=== PATIENT | male | born 1950 | race Caucasian/White ===

== ENCOUNTER 2016-10-12 07:07 | Inpatient (IN) | payer MEDICARE ==
[~2016-10-12] VITALS: Ht 172.7 cm; Wt 85.9 kg
[2016-10-12] VITALS (7 sets, daily range): BP systolic 141–163; BP diastolic 71–92; PULSE 50–73; RESP 18–19; O2SAT 96–99
[~2016-10-12 07:07] MED LIST: CLOP75TA3 PO; METO25TA6 PO; MULT-1018 PO; PRAV10TA2 PO
--- NOTE | 2016-10-12 07:18 | ED.REPORT ---
HPI-Chest Pain 40 and Over Date of Service Oct 12, 2016 ED Provider: Marcelino Mccoy MD The patient is a 66 year old male with history of coronary artery disease s/p stenting, hypertension, high cholesterol, and atrial fibrillation on Plavix, who presents to the emergency department complaining of substernal chest pressure that began 3 days ago. The pain radiates up into his neck. His pain has been intermittent since onset. His symptoms do not seem to be brought on by anything. His symptoms are not worse with exertion. His pain is currently improved. The patient took a full strength ASA prior to arrival. His pain is similar to when he previously had stents placed. He denies fever, chills, cough , abdominal pain or lower extremity swelling. He denies history of previous blood clots. Nursing Notes Stated Complaint: CHEST PAIN Chief Complaint: Chest Pain Nursing Notes Reviewed: Yes Allergies: Coded Allergies: atorvastatin (Verified Allergy, Severe, Itchy, tired, achy, blood in urine , 10/12/16) "itchy, achy, blood in urine" simvastatin (Verified Allergy, Severe, Tired, achy, and itchy, 10/12/16) "achy all over" Scheduled Aspirin (Aspirin) 81 Mg Tablet 81 MG PO QPM Flaxseed Oil ([place]-3 Flaxseed Oil) 1,000 Mg Capsule 1,000 MG PO QAM Lisinopril (Lisinopril) 10 Mg Tablet 10 MG PO QAM Metoprolol Tartrate (Metoprolol Tartrate) 25 Mg Tablet 25 MG PO BID Multivitamin (Multi Vitamin Daily) 1 Each Tablet 1 TABLET PO QAM Pravastatin (Pravastatin) 20 Mg Tablet 20 MG PO HS General Time Seen by MD: 07:17 Chief Complaint Chest pressure Hx Obtained From: Patient Arrived By: Walk-in Sudden in Onset?: Yes Onset Occurred: 3 days ago Symptom Duration: Intermittent Location: : Substernal Quality: Pressure Radiation: : Neck Migration/Movement: Reports: None Severity: Current: No pain currently Severity: Maximum: Severe Recent Healthcare: No recent doctor visit, No recent hospitalization Similar Sx Previous: Yes Past Medical History Past Medical History Atrial fibrillation STEMI - stent placed High cholesterol Hypertension CAD Basal cell cancer Headaches Past Surgical History Cardiac catheterization with stenting Root canal EXC BASAL CELL CA-NOSE Family History Noncontributory Smoking History Former Smoker Social History Alcohol Use: "Social" Drug Use: Denies drug use Other Social History: Local resident Ambulatory Status Independent Review of Systems Constitutional: Denies: Chills, Fever Respiratory: Denies: Non-productive cough Cardiovascular: Reports: Chest pain GI: Denies: Abdominal pain Musculoskeletal: Reports: Neck pain Complete sys rev & neg: except as marked. Physical Exam Initial Vital Signs Vital Signs (First) Date Time Temp Pulse Resp B/P Pulse Ox O2 Delivery O2 Flow Rate FiO2 10/12/16 07:10 36.3 73 18 163/92 99 Initial VS: Reviewed Head / Eyes: Atraumatic, Normocephalic, PERRL ENT: Mucous membranes moist, Conjunctiva normal, No scleral icterus Neck: Supple, Non-tender, Full range of motion Back: No CVA tenderness Lymphatic: No lymphadenopathy Extremities: Vascular intact, Neuro intact, No swelling, No tenderness Skin: Warm, Dry, No cyanosis Neurologic: Alert, Oriented, Nonfocal Psychiatric: Mood/affect normal, Behavior normal, Normal thought content General/Constitutional: Awake, Alert, No acute distress, Well appearing, Cooperative Respiratory / Chest: Atraumatic, Breath sounds NL, Breath sounds = bilat, No respiratory distress, No rales, No rhonchi, No wheezing, No stridor, No chest tenderness, No chest wall deformity Cardiovascular: Heart rate NL, Regular rhythm, Heart sounds NL, No gallop, No murmurs, No rubs, Peripheral circulation NL, Pulses = bilaterally, No gross BP differential Abdomen: Atraumatic, Soft, Non-tender, McBurney's non-tender, No guarding, No rebound, BS normoactive, No distention, No hernia, No palpable mass Lower Extremity / Pelvis / MS: Neurologic intact, Vascular intact No calf swelling or tenderness Interpretation & Diagnostics Lab Results Interpretation Result Diagram: 10/12/16 0749 10/12/16 0749 Test 10/12/16 07:49 White Blood Count 7.1th/mm3 (3.8-10.1) Red Blood Count 5.56mil/mm3 (4.40-5.80) Hemoglobin 15.4g/dL (13.8-17.2) Hematocrit 44.9% (41.0-50.0) Mean Corpuscular Volume 80.8fL (81-100) Mean Corpuscular Hemoglobin 27.7pg (27.0-35.0) Mean Corpuscular Hemoglobin Concent 34.3% (32.0-37.0) Red Cell Distribution Width 13.5% (12.3-15.4) Platelet Count 205bil/L (150-400) Neutrophils (%) (Auto) 68.0% (40-74) Lymphocytes (%) (Auto) 21.4% (14-46) Monocytes (%) (Auto) 7.4% (4-12) Eosinophils (%) (Auto) 2.7% (0-5) Basophils (%) (Auto) 0.4% (0-3) Prothrombin Time 10.7sec (8.1-12.5) Prothromb Time International Ratio 1.00ratio Sodium Level 139mEq/L (134-144) Potassium Level 3.9mEq/L (3.5-5.2) Chloride Level 102mEq/L (97-108) Carbon Dioxide Level 22mmol/L (18-29) Blood Urea Nitrogen 15mg/dL (8-27) Creatinine 0.86mg/dL (0.76-1.27) Estimat Glomerular Filtration Rate 94mL/min (>59) Glucose Level 223mg/dL (60-99) Calcium Level 9.0mg/dL (8.5-10.1) Magnesium Level 2.1mg/dL (1.6-2.6) Total Bilirubin 0.5mg/dL (0.0-1.2) Aspartate Amino Transf (AST/SGOT) 18U/L (0-50) Alanine Aminotransferase (ALT/SGPT) 15U/L (0-44) Alkaline Phosphatase 67U/L (25-160) Troponin T 0.038ug/L (0.0-0.011) Total Protein 6.7g/dL (6.4-8.4) Albumin 4.1g/dL (3.4-5.0) ECG Interpretation ECG Interpretation: Sinus rhythm with a rate of [address] segment changes Inferior Q waves present No acute T wave abnormalities When compared to prior EKG taken on 01/27/15 no acute changes Time: 07:30 Interpreted by: ED physician X-Ray Chest Interpretation Chest Xray Interpretation: IMPRESSION: Stable cardiomegaly. No acute pulmonary findings. Dictated by: Zulma Khan M.D. on 10/12/2016 at 8:19 Interpretation / Wet Read by: Interpret - Radiologist Re-Eval/Medical Decision Med Decision/Clinical Course Patient is a 66-year-old male with a history of known coronary artery disease with history of 2 cardiac stents who presents the emergency department with 3 days of unstable anginal symptoms occurring both at rest and with exertion. Upon arrival to the emergency department the patient is chest pain-free and in no apparent distress with stable vital signs. EKG demonstrates inferior Q waves with no acute ischemic changes and his EKG is unchanged from prior. Laboratory studies including CBC and CMP are unremarkable and initial troponin is positive at 0.038, normal coags. CXR: Obtained, reviewed and interpreted by myself shows no evidence of acute infiltrates, effusions or pneumothorax. Cardiac and mediastinal silhouette normal. No bony or soft tissue abnormalities. His history is concerning for unstable angina. He reports that his symptoms today are similar to what he was experiencing prior to undergoing stent placement. At this moment I see no indication that the patient is experiencing ST elevation RI and he is chest pain-free at this time. History not suggestive of PE and physical exam reveals no findings suggestive of DVT. This pain is not reproducible arguing against musculoskeletal etiologies. Given that patient is high risk for cardiac standpoint I feel that he warrants admission for further cardiac risk stratification, after discussing with cardiology I have started him on a heparin bolus and infusion in the setting of his concerning history and elevated troponin level. Patient was discussed with admitting hospitalist and transferred to telemetry malik in stable condition. Source of Hx: Old records Time of Eval: 08:00 Re-Evaluation/Progress Note: Discussed plan for admission with the patient. He understands and agrees with plan. All questions were addressed. Consultation #1: Referral / Consult Name: Yang Willoughby MD Consulted With: Cardiology Requested Call at: 09:06 Call Returned at: 09:07 Psych Sales Specialist: Will see patient, Agrees with eval, Agrees with plan Consultation #2: Consulted With: Hospitalist Psych Sales Specialist: Will see patient, Agrees with eval, Agrees with plan, Accepts admit Counseled Regarding: Diagnosis, Lab results, Need for admission Discharge & Departure Primary Impression: Chest pain Chest pain type: unspecified Qualified Code: R07.9 - Chest pain, unspecified Additional Impressions: History of heart artery stent History of hyperlipidemia History of hypertension Unstable angina Disposition: ADMITTED TO HOSPITAL Discharge Condition All VS Reviewed: Yes Condition: Stable Referrals: Gabe Mak DO (PCP) Crit Care Except Billable Proc Time Spent: 105-134 minutes Services Performed: Patient management by me, Time spent at bedside, Reviewing test results, Reviewing imaging, Discussing patient care, Documentation in record Scribe Attestation Portions of this note were transcribed by Breanna Mays. I, Dr. Mccoy personally performed the history, physical exam and medical decision-making; I reviewed and confirmed the accuracy of the information in the transcribed note. Signed by: Jordan Reed, 10/12/2016 at 0951. copies to: Gabe Mak Beck O MD Oct 12, 2016 07:18 Breanna Mays Oct 12, 2016 07:20
[2016-10-12 08:06] LABS: BASOPHILS % (AUTO) 0.4 % (0-3); EOSINOPHILS % (AUTO) 2.7 % (0-5); MONOCYTES % (AUTO) 7.4 % (4-12); Mean Corpuscular Hemoglobin 27.7 pg (27.0-35.0); Mean Corpuscular Volume 80.8 fL (81-100); Platelet Count 205 bil/L (150-400)
--- NOTE | 2016-10-12 08:20 | DRSVH ---
PROCEDURE: X-RAY CHEST ONE VIEW, PORTABLE ([id number]) INDICATIONS: CHEST PAIN TECHNIQUE: One view of the chest was acquired. COMPARISON: [facility], , CHEST 1VW (PORTABLE), 01/26/2015, 8:23. FINDINGS: Surgical changes and devices: None. Lungs and pleura: No pleural effusions or pneumothorax. Lungs are clear. Mediastinum: Mediastinal contours appear normal. Heart size is enlarged, as before. Bones and chest wall: No suspicious bony lesions. Overlying soft tissues appear unremarkable. IMPRESSION: Stable cardiomegaly. No acute pulmonary findings. Dictated by: Zulma Khan M.D. on 10/12/2016 at 8:19 Approved by: Zulma Khan M.D. on 10/12/2016 at 8:19
[2016-10-12 08:35] LABS: Magnesium 2.1 mg/dL (1.6-2.6)
[2016-10-12 08:50] LABS: TROPONIN T 0.038 ug/L (0.0-0.011)
[2016-10-12] MEDS ORDERED: Heparin 5,000 Unit/mL Inj IVPUSH PRN (09:20)
[2016-10-12] MEDS ORDERED: Heparin 5,000 Unit/mL Inj IVPUSH ONE (09:20)
[2016-10-12] MEDS ORDERED: FLAX100038 PO (09:59)
[2016-10-12] MEDS ORDERED: LISI10TA PO (09:59)
[2016-10-12] MEDS ORDERED: ASPI-973 PO (09:59)
[2016-10-12] MEDS ORDERED: PRAV20TA2 PO (09:59)
[2016-10-12] MEDS ORDERED: Senna-Docusate 8.6-50 mg Tablet PO PRN (10:10)
[2016-10-12] MEDS ORDERED: Alum-Mag Hydrox-Simeth 30 mL Suspension PO PRN (10:10)
[2016-10-12] MEDS ORDERED: Polyethylene Glycol (PEG) 17 Gm Powder PO PRN (10:10)
[2016-10-12] MEDS ORDERED: Ondansetron 2 mg/mL 2 mL Inj IVPUSH PRN (10:10)
[2016-10-12] MEDS: Heparin 25K Unit/500mL 0.45 NS 25,000 UNIT in IV Premix 1 EACH IV SCH (11:24)
[2016-10-12 11:40] LABS: TROPONIN T 0.057 ug/L (0.0-0.011)
[2016-10-12] MEDS: 0.9% Sodium Chloride 1,000 ML IV SCH (12:47)
--- NOTE | 2016-10-12 13:28 | NUR ---
Admit Pt arrived to floor at approx 1215. Independent in room. Heparin drip infusing per protocol. Started IVF's as ordered. Pt denies CP. Cardiology in room to assess and discuss plan. 2nd IV started in anticipation of heart cath. Pt understands to remain NPO until decision made about heart cath schedule.
--- NOTE | 2016-10-12 14:08 | CONS ---
[address] [address] CONSULTATION REPORT PATIENT: WINDY ELIZALDE : 1950 MR#: [id number] ADMIT: 10/12/2016 JOB ID: [id number] DATE OF SERVICE: 10/12/2016 CARDIOLOGY CONSULTATION: IDENTIFICATION: Dr. Mccoy has asked that I consult on this 66-year-old male with known coronary artery disease who presents with accelerating chest discomfort. HISTORY: The patient's cardiac history dates back to 2007 when he presented with shoulder tightness and an inferior STEMI and was treated with a drug-eluting stent to the mid RCA. At that time, he had a 50% proximal LAD lesion but only mild irregularities in the left circumflex. He subsequently did well with a benign stress echocardiogram in 2010 with an ejection fraction of 55%-60% without focal abnormality until he was admitted in December 2014 with recurrent exertional chest discomfort and a normal ECG but a borderline abnormal troponin. Repeat catheterization at that time showed mild disease in the left coronary artery with in-stent restenosis in the RCA stent followed immediately by a subtotal occlusion in the mid RCA just distal to the stent. This was treated with a drug-eluting stent with an excellent angiographic result. Echocardiogram at that time showed an EF of 62%-65% with proximal inferior wall hypokinesis but was otherwise normal and unchanged. He was noted to have some bradycardia following the procedure, and his metoprolol was reduced and his pravastatin was increased from 10-20 mg with previous intolerance to simvastatin and atorvastatin due to itching and muscular discomfort. He was subsequently followed by Dr. Modi and had his pravastatin increased to 40 mg daily although this was reduced back to 20 mg because of a rash. He was last seen by Dr. Modi in March 2016 and was doing well but had a LDL of 134. His Plavix was discontinued. He subsequently did well until last week when he noted some mid chest dull pressure at high work loads while working on the treadmill that would resolve with rest. However, two days ago, he noted the onset of this discomfort while at rest radiating into his neck. This persisted throughout the evening. He took an aspirin and was able to fall asleep and it had resolved by the time of his awakening although returned yesterday morning slightly lasting 1-2 hours. It spontaneously has resolved but returned again this morning, again lasting several hours and this prompted him to present to the emergency department, although by the time of his arrival, he was chest-pain free. He describes that his discomfort is quite similar to his previous anginal pain. There is no pleuritic component to the discomfort and he did not notice any clear exacerbation of the pain with exercise in the last several days. It was slightly improved with sitting upright. There was no associated nausea, vomiting, diaphoresis, palpitations or lightheadedness. He has had no further chest discomfort since being started on IV heparin in the emergency department. PAST MEDICAL HISTORY: History of borderline hypertension and hyperlipidemia. He has a reported history of atrial fibrillation in 2012 although there is no documentation of this. He denies any history of diabetes although his blood sugar on admission today is 223. HOME MEDICATIONS: 1. Metoprolol 25 mg b.i.d. 2. Pravastatin 20 mg daily. 3. Aspirin 81 mg daily. ALLERGIES: Only to ATORVASTATIN and SIMVASTATIN. FAMILY HISTORY: Notable only for hyperlipidemia in his father who lived into his 90s. Otherwise unremarkable. SOCIAL HISTORY: The patient is single and lives in [place], and is a retired construction and pre sales network engineer. He drinks 4-6 ounces of alcohol per week. REVIEW OF SYSTEMS: A complete review is performed and is notable for the absence of any recent fevers or chills, unexplained weight change or vision change. Denies any ENT problems, dyspnea, cough or hemoptysis. No history of peptic ulcer disease or GI blood loss. Denies any genitourinary complaints or hematuria. Denies any current musculoskeletal discomforts or history of focal neurologic deficits. No history of any thyroid or bleeding disorder. He denies any anxiety or depression. PHYSICAL EXAM: Mildly overweight but otherwise healthy appearing elderly white male, in no distress. HR: 52. BP 145/81. O2 saturation 98% on room air. Weight: Has not yet been recorded. Skin: Warm and dry. HEENT: EOMI with moderate arcus. He has fairly good dentition. Lungs: Clear bilaterally to auscultation and percussion. CV: Nonpalpable PMI with a regular rate and rhythm with a normal S1 and S2 without any appreciable murmurs or gallops. JVP is 4-5 cm. Carotid and femoral pulses are 2+ bilaterally with a normal upstroke and no bruit. Abdomen: Soft, nondistended, nontender without any palpable masses or organomegaly. Normal bowel tones are present without bruits. Extremities: Warm without clubbing, cyanosis, or edema. Neuro: Moves all four extremities. Psych: Awake, alert and oriented. LABORATORY: White count of 7.1 with hematocrit of 45%. Potassium is 3.9 with a BUN of 15 and creatinine of 0.9. Glucose is 223. Initial troponin is 0.038 and has subsequently increased to 0.057 with a CK of 201 and an MB of 16 (8%). Chest x-ray: No acute abnormalities. ECG: Shows inferior Q-waves but no obvious ST-segment deviations and appears unchanged from his previous ECGs from March 2015. IMPRESSION: 1. Probable non-ST elevation myocardial infarction. His description of his chest discomfort is quite compelling for an acute coronary syndrome with prolonged chest discomfort at rest over the last several days associated with abnormal and rising troponins. Given this, and his history and under treated hyperlipidemia, I think there is a high likelihood for an acute ischemic event. As such, I have recommended proceeding with cardiac catheterization to redefine his coronary anatomy and hopefully percutaneous revascularization if appropriate. I discussed with him the procedure, risks, and alternatives and he agrees to proceed. I will attempt to see if this can be done later on today but may have to be deferred until tomorrow depending upon the catheterization laboratory schedule. In the meantime, I would continue with IV heparin and his current medications with the exception of changing his pravastatin to rosuvastatin. 2. Hyperlipidemia. I spent considerable time discussing his hyperlipidemia and the need for better control. I have suggested that we try rosuvastatin, and if this is not tolerated, to consider the new PCSK-9 inhibitors. He is amenable to trying rosuvastatin and, therefore, will change him to this at 20 mg daily. 3. Hyperglycemia. It could be an indication of underlying diabetes. I will leave further evaluation to the hospitalist. 4. Mild hypertension. Likely situational as he reports blood pressures are better controlled typically. PLAN: 1. Continue current medications with exception of changing his pravastatin to rosuvastatin. 2. Arrange for cardiac catheterization and possible percutaneous revascularization by Dr. Fernandez either today or tomorrow. 3. Repeat a lipid panel in 2-3 months on rosuvastatin if tolerated. If not, consider Repatha or Praluent. I spent from 11:45-1:17 reviewing the patient's record, interviewing the patient, examining him, and answering his questions.
--- NOTE | 2016-10-12 14:26 | PCM.HPMED ---
Subjective Date of Service Oct 12, 2016 Primary Provider: Admitting Physician: Primary Care Physician: Gabe Mak DO Attending Physician: Chief Complaint: Chest pain, chest pain with exertion History of Present Illness: 66-year-old male with a history of coronary artery disease presents with resting chest pain and positive troponin. He states it feels the same as it has in the past whether some subtle pressure behind his clavicle like he cannot clear his breath. Ultimately he works out 5 days a week at the gym and does interval training where his high intensity and then walking on a treadmill and usually in the first round has some shortness of breath but it resolves by the second round. The new and different changes now that the patient has started to have it at rest. He started having it about 2 days ago but it went away it came back and now he woke this morning within decided to come into the emergency room to have it evaluated. Review of Systems: Gen.: No fevers chills weight loss weight gain Eyes: no visual disturbances or blurring vision HEENT: No nose/throat drainage, no pain in ears or throat, no hearing loss Lymph: No lymph nodes noted Cardiac: No orthopnea, PND, palpitations , pedal edema or dyspnea on exertion chest pain/pressure as described Pulmonary: no cough, wheezing or bringing up of sputum some pulmonary symptoms of a cough 2 weeks ago those of since resolved GI: No anorexia nausea vomiting blood or black in the stool : no dysuria hematuria urinary frequency or decrease in urine output Musculoskeletal: Joint swelling no joint pain no new muscle aches or back pain Neuro: No syncope, seizures no loss of consciousness no new focal weakness, numbness or tingling Psychiatric: New new anxiety insomnia or depression Endocrine: No new heat or cold intolerances polyuria or polydipsia Hematology: No lymphadenopathy or easy bleeding or bruising noted skin: No new rashes, stasis dermatitis Allergies Coded Allergies: atorvastatin (Verified Allergy, Severe, Itchy, tired, achy, blood in urine , 10/12/16) "itchy, achy, blood in urine" simvastatin (Verified Allergy, Severe, Tired, achy, and itchy, 10/12/16) "achy all over" Home Medications Aspirin (Aspirin) 81 Mg Tablet 81 MG PO QPM Flaxseed Oil ([place]-3 Flaxseed Oil) 1,000 Mg Capsule 1,000 MG PO QAM Lisinopril (Lisinopril) 10 Mg Tablet 10 MG PO QAM Metoprolol Tartrate (Metoprolol Tartrate) 25 Mg Tablet 25 MG PO BID Multivitamin (Multi Vitamin Daily) 1 Each Tablet 1 TABLET PO QAM Pravastatin (Pravastatin) 20 Mg Tablet 20 MG PO HS PMH Social History Hx Alcohol Use: Yes (One or twice a week) Hx Substance Use: No Hx Tobacco Use: No Smoking Status: Former Smoker Exam Vital Signs Vital Sign - Last Date Time Temp Pulse Resp B/P Pulse Ox O2 Delivery O2 Flow Rate FiO2 10/12/16 07:10 36.3 73 18 163/92 99 Exam Gen.- A+ O 3 no apparent distress. Well appearing male sitting up in chair on heparin drip Eyes- open conjunctiva clear, pupils equal nonicteric Mouth- oral mucosa moist, no exudate ENT- ears normal, nose normal Neck- supple/trach midline CVS- RRR no murmur or gallop Lungs CTA, no wheezing or rhonchi noted sensory muscle usage GI- NABS/NT soft Musc- moving 4 no obvious deformity Neuro- cranial nerves II through XII intact to gross examination, nonfocal Skin- warm and dry, no rashes/lesions/wounds noted Psych- pleasant and appropriate, Lab and Diagnostics Result Diagram: 10/12/16 0749 10/12/16 0749 Assessment & Plan 66-year-old male with a history of coronary artery disease having chest pain with exertion just like when he came to the hospital left with a stent last time. Cardiology has already seen the patient and the plan was to do catheterization today however there is no time on the schedule so the plan is to do tomorrow 10/13 in the a.m. For that and we are feeding the patient and doing serial enzymes and treating symptoms. Patient will continue on a heparin drip and trend enzymes on cardiac protocol should there be any further chest pain. #Chest pain-similar to past history cardiology has been consulted and has seen the patient and is planning for #Positive troponin- continue trending #Hx CAD/lipid/HTN-resume home meds aspirin/Plavix/statin/lisinopril/metoprolol. Not upping beta blockers patient's already bradycardic, may need some additional DIOMEDES inhibitor blood pressure is a little on the high side although I am not pursuing that vigorously right now. #Prophylaxis- patient on a heparin drip will give him SCDs, GI not indicated #Disposition- full code from home Satinder Hernandez MD Oct 12, 2016 10:13
[2016-10-12] MEDS: Sodium Chloride LOK Flush 10 mL Syringe IVFLUSH SCH ×2 (16:04→16:05)
[2016-10-12 18:08] LABS: TROPONIN T 0.084 ug/L (0.0-0.011)
--- NOTE | 2016-10-12 18:41 | NUR ---
Heparin cardiac protocol PTT 51.5. Changed to new rate from 1000 u/hr to 1025 u/hr per protocol. Pt. denied chest pain. He is ADLs independent. Next PTT at 2230 tonight.
[2016-10-13] VITALS (18 sets, daily range): BP systolic 122–170; BP diastolic 63–91; PULSE 51–71; RESP 13–18; O2SAT 94–97
[2016-10-13] MEDS: Sodium Chloride LOK Flush 10 mL Syringe IVFLUSH SCH ×8 (01:39→20:43)
[2016-10-13] MEDS: 0.9% Sodium Chloride 1,000 ML IV SCH ×3 (01:39→20:42)
--- NOTE | 2016-10-13 04:25 | NUR ---
Uneventful night Pt slept well all night and has had no complaints of chest discomfort. Heparin drip running all shift and has trina increased from 1025units/hr to 1075units/hr after receiving a 1000unit bolus for low Ptt.
[2016-10-13 05:08] LABS: BASOPHILS % (AUTO) 0.5 % (0-3); EOSINOPHILS % (AUTO) 4.8 % (0-5); MONOCYTES % (AUTO) 9.6 % (4-12); Mean Corpuscular Hemoglobin 27.9 pg (27.0-35.0); Mean Corpuscular Volume 80.9 fL (81-100); NEUTROPHILS % (AUTO) 68.5 % (40-74); Platelet Count 170 bil/L (150-400)
[2016-10-13] MEDS ORDERED: 0.9% Sodium Chloride 1,000 ML IV ONE (06:00)
[2016-10-13] MEDS ORDERED: diphenhydrAMINE 25 mg Capsule PO ONE (06:00)
[2016-10-13] MEDS ORDERED: LORazepam 1 mg Tablet PO PRN (08:40)
[2016-10-13] MEDS ORDERED: LORazepam 1 mg Tablet PO ONE (08:40)
--- NOTE | 2016-10-13 09:27 | NUR ---
Social Work-initial assessment/ readiness for discharge: Data:See initial assessment. P tis a 66 y/o male who was admitted for chest pain per H&P. Pt's insurance is [employer] and PCP is Gabe Mak DO. EMR reviewed.Pt's readmission score is 2. SW met with pt at bedside to discuss discharge planning, SW role explained. Pt is alert and oriented x3. Pt resides at home alone where he remains independent with ADLs. Pt drives and does not use any DME. Pt has no HH or SNF history. Pt has no long-term care or VA benefits. SW discussed DPOA/ advanced directive, pt declined any resources . Pt has been up independent in the hallways.Pt's friend Bill to provide transport home at discharge. SW provided phone number and plan on white board in room. No anticipated discharge needs. SW will continue to follow if needs arise. Assessment:Pt who is independent at baseline. Plan:Pt to discharge home when medically stable via POV. No anticipated discharge needs. SW will continue to follow if needs arise. GEOVANNY Christian Addendum: 10/13/16 at 0930 by FALLON OSORIO Amended: Links added.
[2016-10-13 09:48] LABS: TROPONIN T 0.09 ug/L (0.0-0.011)
--- NOTE | 2016-10-13 10:12 | NUR ---
Ativan: Discussed one time Ativan order w/patient. Patient requesting to hold off of taking Ativan.
--- NOTE | 2016-10-13 11:27 | NUR ---
Heparin Infusion: 1030 Heparin PTT 53.2. Infusion increased to 1125u/hr. Next Heparin PTT in six hrs. @ 1630. Will follow.
[2016-10-13] MEDS: Heparin 25K Unit/500mL 0.45 NS 25,000 UNIT in IV Premix 1 EACH IV SCH (12:07)
--- NOTE | 2016-10-13 14:36 | PCM.PNMED ---
Subjective Date of Service Oct 13, 2016 Subjective Little bit of retrosternal or sure same as described before but otherwise no chest pain. No dyspnea, no nausea or vomiting Exam Vital Signs Vital Sign - Last Date Time Temp Pulse Resp B/P Pulse Ox O2 Delivery O2 Flow Rate FiO2 10/13/16 13:34 36.8 62 18 144/77 97 Room Air Intake and Output 10/12/16 10/12/16 10/13/16 Cumulative From/Thru 15:00 23:00 07:00 10/12/16 07:10 - 10/13/16 06:37 Intake Total 1256 ml 1819 ml 3075 ml Output Total 1425 ml 1425 ml Balance 1256 ml 394 ml 1650 ml Intake Oral 700 ml 600 ml 1300 ml IV Total 556 ml 1219 ml 1775 ml Output Urine Total 1425 ml 1425 ml # Voids 1 1 Exam Gen.- A+ O 3 no apparent distress. Well appearing male sitting up in chair on heparin drip Eyes- open conjunctiva clear, pupils equal nonicteric Mouth- oral mucosa moist, no exudate ENT- ears normal, nose normal Neck- supple/trach midline CVS- RRR no murmur or gallop Lungs CTA, no wheezing or rhonchi noted sensory muscle usage GI- NABS/NT soft Musc- moving 4 no obvious deformity Neuro- cranial nerves II through XII intact to gross examination, nonfocal Skin- warm and dry, no rashes/lesions/wounds noted Psych- pleasant and appropriate, Lab and Diagnostics Result Diagram: 10/13/16 0430 10/13/16 0430 Assessment & Plan 66-year-old male with a history of coronary artery disease having chest pain with exertion just like when he came to the hospital left with a stent last time. Cardiology has already seen the patient and the plan was to do catheterization today however there is no time on the schedule so the plan is to do tomorrow 10/13 in the a.m. For that and we are feeding the patient and doing serial enzymes and treating symptoms. Patient will continue on a heparin drip and trend enzymes on cardiac protocol should there be any further chest pain. 10/13 cardiac enzymes have been trending upward, patient minimally symptomatic , EKG without changes. Patient offered catheterization, plan per cardiology. #Chest pain-similar to past history cardiology has been consulted and has seen the patient and is planning for #Positive troponin- continue trending #Hx CAD/lipid/HTN-resume home meds aspirin/Plavix/statin/lisinopril/metoprolol. Not upping beta blockers patient's already bradycardic, may need some additional DIOMEDES inhibitor blood pressure is a little on the high side although I am not pursuing that vigorously right now. #Prophylaxis- patient on a heparin drip will give him SCDs, GI not indicated #Disposition- full code from home Satinder Hernandez MD Oct 13, 2016 14:36
[2016-10-13] MEDS ORDERED: Nitroglycerin 50,000 mcg/250 mL D5W Premix IV ONE ×2 (14:58→15:16)
[2016-10-13] MEDS ORDERED: 0.9% Sodium Chloride 0 ML ONE (14:58)
[2016-10-13] MEDS ORDERED: Heparin 1,000 Unit/mL 10 mL Inj ONE ×2 (14:59→15:16)
[2016-10-13] MEDS ORDERED: 0.9% Sodium Chloride 1,000 ML ONE (15:16)
--- NOTE | 2016-10-13 15:28 | NUR ---
Off Unit: Patient transported via bed to [facility] @ approx 1520 accompanied by [facility] staff. IVF's and Heparin stopped prior to transport, pre-op Benadryl administered. Telemetry removed, monitor and storage bin tender notified.
[2016-10-13] MEDS ORDERED: Heparin 1,000 Units/500 mL NS Premix IV ONE (15:29)
[2016-10-13] MEDS ORDERED: fentaNYL-PF 50 mCg/mL 2 mL Inj ONE (15:41)
--- NOTE | 2016-10-13 17:14 | NUR ---
Received Received from labeling machine operator about 1635. Right groin with track ooze but no hematoma. VSS. Stated initial back pain 02/07 but stated improvement after head raised. IVF infusing per orders. Groin precautions reviewed and verbalizes understanding. Taking po well. Dressing to right groin changed about 1700. Continue to monitor per orders.
--- NOTE | 2016-10-13 19:55 | NUR ---
Transfer Pt. off bedrest at 1840. Assisted to side of bed to void without change in groin. VSS. Tele SR-SB. Report called to Stephanie IRBY at 1914. Transported to 2026 via bed in no distress at 1924.
[2016-10-13] MEDS ORDERED: 0.9% Sodium Chloride 400 ML (4 HRS) IV ONE (20:55)
[2016-10-13] MEDS ORDERED: Ondansetron 2 mg/mL 2 mL Inj IVPUSH PRN (20:55)
[2016-10-13] MEDS ORDERED: Sodium Chloride LOK Flush 10 mL Syringe IVFLUSH PRN (20:55)
[2016-10-13] MEDS ORDERED: 0.9% Sodium Chloride 250 ML BOLUS IV PRN (20:55)
[2016-10-13] MEDS ORDERED: Atropine 1 mg/10 mL (Code) Syringe IVPUSH PRN (20:55)
--- NOTE | 2016-10-13 23:43 | NUR ---
Transfer / Cardiac Pt arrived from [facility] to [id number] status[place] approx. at 1930. Right groin site C/D/I without apparent complications. Pt up walking and tolerating activities well. Dr. Souza called for Heparin order clarification and also was notified regarding BP. Received order to D/C Heparin and to give Lisinopril 20 mg PO. Pt was updated with POC and he verbalizes understanding. No overt complications noted. Report given and care transferred to receiving RN (Rich Wade)
[2016-10-14 05:03] VITALS: BP 156/74; PULSE 57; RESP 18; O2SAT 95
--- NOTE | 2016-10-14 05:30 | NUR ---
dressing: right groin dressing CDI. no bruising, or signs of hematoma noted. pt A&OX3. denies chest pain, or any discomfort. will continue to monitor.
[2016-10-14 05:53] VITALS: PULSE 76
[2016-10-14 07:33] VITALS: BP 155/76; PULSE 60; RESP 15; O2SAT 95
[2016-10-14] MEDS: Sodium Chloride LOK Flush 10 mL Syringe IVFLUSH SCH ×2 (07:47)
[2016-10-14 08:00] VITALS: PULSE 70
--- NOTE | 2016-10-14 09:08 | PROG NOTE ---
[address] [address] PROGRESS NOTE PATIENT: WINDY ELIZALDE : 1950 MR#: [id number] ADMIT: 10/12/2016 JOB ID: [id number] DATE: 10/14/2016 SUBJECTIVE: The patient underwent cardiac catheterization yesterday which revealed a new high-grade lesion in the proximal LAD as well as a completely occluded right coronary artery at the site of the previous stent. A drug-eluting stent was successfully placed to the proximal LAD. Dr. Fernandez wishes to pursue percutaneous revascularization of the right coronary artery at a later date. This has been tentatively scheduled for tomorrow morning as an outpatient. The patient feels well this morning. Denying any chest discomfort and has ambulated. He has no complaints of the groin site. DATE: PHYSICAL EXAMINATION: HR 60, BP 155/76. Regular rate and rhythm. The groin site appears excellent without any hematoma or bruit. LABORATORY: His troponin peaked at 0.090. His potassium was 3.7 yesterday with a creatinine of 0.8 and a BUN of 12. IMPRESSION: 1. Unstable angina. The patient can be discharged to home today with a prescription for aspirin and Plavix to be taken without fail for the next year. He should return to the hospital diagnostic imaging area tomorrow morning at around 9 a.m. for cardiac catheterization and PCI to the right coronary artery. 2. Hyperlipidemia. The patient should be discharged on rosuvastatin 20 mg daily with her lipid recheck in several months. 3. Hyperglycemia. An A1c should be checked. I will defer this to the hospitalist. 4. Hypertension. I would like to see his blood pressures lower but this may be situational. One could consider increasing his lisinopril, but this can be deferred to the outpatient setting. RECOMMENDATIONS: 1. The patient will be discharged today with prescriptions for aspirin, Plavix and rosuvastatin. 2. The patient should report back to the diagnostic imaging area tomorrow morning around 9 a.m. 3[address] Followup with Dr. Modi as an outpatient for further management of his hypertension and hyperlipidemia. 4. At this point, I will sign off. Please call if you have any further questions. VINAY
[2016-10-14 13:15] VITALS: BP 155/75; PULSE 65; RESP 18; O2SAT 95
[2016-10-14] MEDS: 0.9% Sodium Chloride 1,000 ML IV SCH (13:52)
[2016-10-14] MEDS ORDERED: Potassium Chloride 20 mEq SR Tablet PO ONE (14:35)
--- NOTE | 2016-10-14 14:50 | PCM.DIMED ---
Discharge Instructions Date of Service Oct 14, 2016 Dates of Hospitalization Oct 12, 2016 at 10:47 Discharge Diagnosis Discharge Diagnosis Coronary Artery Disease Diet Heart Healthy Activity Other (No excercise or strenuous activity until approved by Cardiology) Call your provider Fever or Chills, Shortness of breath, Bleeding, Chest pain, Vomitting, Excessive diarrhea, Weakness (unilateral) Patient Instructions Follow-up with PCP in: 1 week Provider: Yang Willoughby MD Follow-up in: 1 week (Tomorrow morning at 9am) Gabe Lopez MD Oct 14, 2016 14:50
[2016-10-14] MEDS ORDERED: CREST10T PO (14:54)
[2016-10-14] MEDS ORDERED: NITR0.4T SL (14:54)
[2016-10-14] MEDS ORDERED: CLOP75TA28 PO (14:54)
--- NOTE | 2016-10-14 15:47 | NUR ---
Social Work: Discharge Data: Pt is on day 2 of hospitalization. EMR reviewed. D/C orders are in. No d/c planning needs at this time. MEDICAL TECHNICIANS will continue to follow if needs arise. Assessment: Pt who is independent at baseline. Plan: Pt will d/c home via POV today. No d/c planning needs at this time. MEDICAL TECHNICIANS will continue to follow if needs arise. GEOVANNY Garza
--- NOTE | 2016-10-14 15:49 | NUR ---
Discharge Pt. discharged to home in stable condition at 1515. Pt. walking with steady gait. Denies chest pain. tele and IV's dc'd prior to discharge. All scripts, instructions and belongings with pt. Instructed on nitroglycerine administration, if pt. has chest pain. He understands to come back tomorrow morning, and knows where to check in for his cardiac work-up. No questions or concerns at this time.
--- NOTE | 2016-10-15 00:39 | PCM.DC.MED ---
Discharge Summary Date of Service Oct 14, 2016 Dates of Hospitalization Date of Hospital Admission Oct 12, 2016 at 10:47 Date of Discharge: Oct 14, 2016 Providers: Admitting Physician: Satinder Hernandez MD Primary Care Physician: Gabe Mak DO Attending Physician: Satinder Hernandez MD Diagnosis at Time of Discharge Diagnosis at Time of Discharge Coronary Artery Disease Consultations Dr. Yang Willoughby of cardiology. Procedures XRay, CTs & MRIs PROCEDURE: X-RAY CHEST ONE VIEW, PORTABLE ([id number]) INDICATIONS: CHEST PAIN TECHNIQUE: One view of the chest was acquired. COMPARISON: [facility], , CHEST 1VW (PORTABLE), 01/26/2015, 8:23. FINDINGS: Surgical changes and devices: None. Lungs and pleura: No pleural effusions or pneumothorax. Lungs are clear. Mediastinum: Mediastinal contours appear normal. Heart size is enlarged, as before. Bones and chest wall: No suspicious bony lesions. Overlying soft tissues appear unremarkable. IMPRESSION: Stable cardiomegaly. No acute pulmonary findings. Dictated by: Zulma Khan M.D. on 10/12/2016 at 8:19 Approved by: Zulma Khan M.D. on 10/12/2016 at 8:19 Invasive Procedures The patient underwent cardiac catheterization yesterday which revealed a new high-grade lesion in the proximal LAD as well as a completely occluded right coronary artery at the site of the previous stent. A drug-eluting stent was successfully placed to the proximal LAD. Dr. Fernandez wishes to pursue percutaneous revascularization of the right coronary artery at a later date. This has been tentatively scheduled for tomorrow morning as an outpatient. The patient feels well this morning. Denying any chest discomfort and has ambulated. He has no complaints of the groin site. Brief History Patient is a pleasant 66-year-old male with a history of coronary artery disease presents with resting chest pain and positive troponin. He states it feels the same as it has in the past whether some subtle pressure behind his clavicle like he cannot clear his breath. Ultimately he works out 5 days a week at the gym and does interval training where his high intensity and then walking on a treadmill and usually in the first round has some shortness of breath but it resolves by the second round. The new and different changes now that the patient has started to have it at rest. He started having it about 2 days ago but it went away it came back and now he woke this morning within decided to come into the emergency room to have it evaluated. Patient was admitted to the hospital service for further evaluation and treatment. Hospital Course The patient is a 66-year-old male with a history of coronary artery disease having chest pain with exertion just like when he came to the hospital left with a stent last time. She was admitted to the hospital service. Cardiology was consulted and took the patient to the cardiac Needle Leader. The cathode ray tube assembler report is not yet available. However, I spoke with Dr. Willoughby and he stated that the patient had a stent placed in the LAD and there was an occlusion of the RCA and he plans on addressing that tomorrow. # Chest pain-secondary to coronary artery disease as mentioned above. Patient underwent cardiac catheterization and stent placement as mentioned above. # Positive troponin- possible non-ST elevated myocardial infarction recently the patient had unstable angina. His chest pain is now resolved and has been cleared for discharge by cardiology. His return tomorrow for further intervention to the RCA by Dr. Benz. # Hx CAD/lipid/HTN-resume home meds aspirin/Plavix/statin/lisinopril/ metoprolol. Statin will be changed to Crestor per Dr. Willoughby's recommendations. # Prophylaxis- patient on a heparin drip will give him SCDs, GI not indicated # Disposition- patient we discharged home today and will return tomorrow morning at [address] Hanson for intervention to the right coronary artery. Patient understands this and this is all but explained to patient by Dr. Willoughby. Exam Vital Signs (Last) Date Time Temp Pulse Resp B/P Pulse Ox O2 Delivery O2 Flow Rate FiO2 10/14/16 13:15 36.6 65 18 155/75 95 Room Air Exam General: Patient is sitting up in a bedside chair waiting to go home. He is in no apparent distress. HEENT: Head is atraumatic and normocephalic. Eyes: Pupils are equally round and reactive to light and accommodation. Extraocular muscles are intact. Sclera are white, anicteric. Subconjunctival mucosa is pink. Ears and nose are unremarkable. Oropharynx: There is no mucosal lesions, there is no thrush, there is no pharyngitis. Neck: Is supple, there are no nodes, or masses or tenderness. Chest: Is clear to auscultation and percussion. There are no rales, rhonchi, wheezes or rubs. Heart: Rate, rhythm is regular. There is no murmur, rub or gallop. Abdomen: Good bowel sounds are present. Abdomen is soft, nontender, no organomegaly or masses were appreciated. Extremities: Are symmetrical and well perfused. There is no edema, there is no cellulitis, no rash. Neurologic: There are no focal neurological deficits. Cranial nerves II through XII are intact. There are no sensory or motor deficits. Psychiatric: Patients mood is calm and shows no sign of agitation. Genital: Deferred Rectal: Deferred Test 10/12/16 07:49 10/12/16 10:20 10/12/16 17:00 10/13/16 04:30 Prothrombin Time 10.7sec (8.1-12.5) Prothromb Time International Ratio 1.00ratio Total Bilirubin 0.5mg/dL (0.0-1.2) Aspartate Amino Transf (AST/SGOT) 18U/L (0-50) Alanine Aminotransferase (ALT/SGPT) 15U/L (0-44) Alkaline Phosphatase 67U/L (25-160) Total Protein 6.7g/dL (6.4-8.4) Albumin 4.1g/dL (3.4-5.0) Hold Urine Received (Received) Creatine Kinase MB 19.2ng/mL (0.0-10.4) Creatine Kinase MB % 8.3% (0.0-5.0) White Blood Count 5.9th/mm3 (3.8-10.1) Red Blood Count 5.12mil/mm3 (4.40-5.80) Mean Corpuscular Volume 80.9fL (81-100) Mean Corpuscular Hemoglobin 27.9pg (27.0-35.0) Mean Corpuscular Hemoglobin Concent 34.5% (32.0-37.0) Red Cell Distribution Width 13.4% (12.3-15.4) Platelet Count 170bil/L (150-400) Neutrophils (%) (Auto) 68.5% (40-74) Lymphocytes (%) (Auto) 16.4% (14-46) Monocytes (%) (Auto) 9.6% (4-12) Eosinophils (%) (Auto) 4.8% (0-5) Basophils (%) (Auto) 0.5% (0-3) Test 10/13/16 08:30 10/13/16 10:36 10/14/16 08:30 Total Creatine Kinase 179U/L (21-232) Troponin T 0.090ug/L (0.0-0.011) Activated Partial Thromboplast Time 53.2sec (22.8-33.0) Hemoglobin 15.6g/dL (13.8-17.2) Hematocrit 45.5% (41.0-50.0) Sodium Level 142mEq/L (134-144) Potassium Level 3.7mEq/L (3.5-5.2) Chloride Level 102mEq/L (97-108) Carbon Dioxide Level 22mmol/L (18-29) Blood Urea Nitrogen 9mg/dL (8-27) Creatinine 0.90mg/dL (0.76-1.27) Estimat Glomerular Filtration Rate 89mL/min (>59) Glucose Level 159mg/dL (60-99) Calcium Level 9.0mg/dL (8.5-10.1) Magnesium Level 2.0mg/dL (1.6-2.6) Microbiology Results Name: WINDY ELIZALDE Age/Sex: 66/M Attend Dr: Satinder Hernandez MD Acct: [id number] Unit: [id number] Status: ADM IN Location: [facility] [place] 3027-1 Re10/12/16 Disch: Specimen: [id number] Collected: 10/13/16 Status: FABRICIO Wheatley#: [id number] Received: 10/13/16 Source: STOOL Sp Desc : Subm Dr: Satinder Hernandez MD Ordered: WFOBT Procedure Result Verified Site Microbiology JOLLY OCCULT BLOOD IMMUNOCHEM Final 10/13/16 OCCULT BLD IMMUNOCHEMICAL NEGATIVE REFERENCE INTERVAL NEGATIVE Discharge Medications Discharge Medications Aspirin (Aspirin) 81 Mg Tablet 81 MG PO QPM (Reported) Clopidogrel (Clopidogrel) 75 Mg Tablet 75 MG PO DAILY Prescribed by: JAREN LOPEZ MD Flaxseed Oil ([place]-3 Flaxseed Oil) 1,000 Mg Capsule 1,000 MG PO QAM (Reported) Lisinopril (Lisinopril) 10 Mg Tablet 10 MG PO QAM (Reported) Metoprolol Tartrate (Metoprolol Tartrate) 25 Mg Tablet 25 MG PO BID Prescribed by: SUSAN SAMUEL DO Multivitamin (Multi Vitamin Daily) 1 Each Tablet 1 TABLET PO QAM (Reported) Rosuvastatin Calcium (Crestor) 10 Mg Tablet 20 MG PO HS Prescribed by: JAREN LOPEZ MD As needed Nitroglycerin SL (Nitrostat) 0.4 Mg Tab.subl 0.4 MG SL Q5MIN PRN PRN For Chest Pain IF SBP > 90 Prescribed by: JAREN LOPEZ MD Followup Plan Disposition: Patient is being discharged home to return again in the morning at 9 AM for other interventional procedure by cardiology. Discharge Diet: Heart Healthy Discharge Activity: Other (No excercise or strenuous activity until approved by Cardiology) Follow-up with PCP in: 1 week Provider: Yang Willoughby MD Follow-up in: 1 week (Tomorrow morning at 9am) Time spent Time spent on discharging this patient was greater than 35 minutes over half of which was involved in counseling and coordination of care. Gabe Lopez MD Oct 15, 2016 00:39
--- NOTE | 2016-11-11 16:49 | CS94 ---
[address] [address] DIAGNOSTIC CARDIAC CATHETERIZATION PATIENT: WINDY ELIZALDE : 1950 MR#: [id number] ADMIT: 10/12/2016 JOB ID: [id number] SERVICE DATE: 10/13/2016 INDICATIONS: Chest pain. PROCEDURAL DETAILS: The reader is referred to the procedure log for complete details as are the coders. Briefly, it was done via right femoral approach using a 6-[place] system. ANGIOGRAPHIC FINDINGS: 1. Left main: No significant disease. 2. LAD in its proximal segment has an 80% discrete lesion. 3. Circumflex is nondominant. Past the first major obtuse marginal branch, there is a tubular stenosis of about 50% to 60%. 4. Right coronary artery has stents in its mid segment. It is totally occluded in its mid segment. Proximally, there is an eccentric 40% lesion. 5. Left heart catheterization revealed basal inferior hypokinesis. EF was estimated to be around 55%. There was no gradient upon pullback. LVEDP was around 10-12. INTERVENTIONAL REPORT: We then proceeded ahead with an intervention on the LAD. This lesion was crossed with a Run-through wire and predilated with a 2.0 balloon and finally it was stented with a 3.0 x 12 mm Xience drug-coated stent at 12 atmospheres with excellent angiographic results. In summary, successful intervention on the left anterior descending. He will be brought back at a subsequent date for an intervention on his totally occluded right coronary artery.
== END 2016-10-14 15:25 | disposition home or self-care (01) | DRG 247 ==
LOC: SED 07:07 → MPC 10:47
PROVIDERS: ADMIT Hospitalist; ATTEND Hospitalist
PROC: 027034Z Dilation of Coronary Artery, One Artery with Drug-eluting Intraluminal Device, Percutaneous Approach (ICD-10-PCS; principal; 2016-10-13)
PROC: 4A023N7 Measurement of Cardiac Sampling and Pressure, Left Heart, Percutaneous Approach (ICD-10-PCS; 2016-10-13)
PROC: B2111ZZ Fluoroscopy of Multiple Coronary Arteries using Low Osmolar Contrast (ICD-10-PCS; 2016-10-13)
DX: I21.4 Non-ST elevation (NSTEMI) myocardial infarction (principal); I25.110 Atherosclerotic heart disease of native coronary artery with unstable angina pectoris; I25.82 Chronic total occlusion of coronary artery; E78.5 Hyperlipidemia, unspecified; I10 Essential (primary) hypertension; I25.2 Old myocardial infarction; Z87.891 Personal history of nicotine dependence; Z95.5 Presence of coronary angioplasty implant and graft; Z79.02 Long term (current) use of antithrombotics/antiplatelets